=== PATIENT | female | born 1985 | race Caucasian/White ===

== ENCOUNTER → 2017-01-05 | Outpatient (CLI) | payer OTHER ==
--- NOTE | 2017-01-05 17:05 | RADIOLOGY REPORT (SQ) ---
EXAM DESCRIPTION: HYSTEROSALPINGOGRAM COMPLETED DATE/TIME: 01/05/2017 3:40 pm REASON FOR STUDY: INFERTILITY COMPARISON: None. PROCEDURE: PRE-PROCEDURE: Procedure was explained to the patient. She was told to expect cramping du ring the procedure, and possible spotting post procedure. PROCEDURE: The cervix was prepped in sterile fashion. Under direct visual inspection, the cervix was cannulated with the hysterosalpingogram catheter and contrast injected. TECHNIQUE: Temporal fluoroscopic images acquired during the procedure stored to PACS. FLUOROSCOPY TIME: Less than 5 seconds 17 digital radiographic images saved to PACS. LIMITATIONS: None. FINDINGS: UTERUS: No identified anomalies. No synechia. RIGHT ADNEXA: Normal size fallopian tube. Free spill of contrast into the peritoneal cavity. LEFT ADNEXA: Normal size fallopian tube. Preferential free spill of contrast into the peritoneal cav ity. POST PROCEDURE: The patient tolerated the procedure with no adverse effects. IMPRESSION: NORMAL HYSTEROSALPINGOGRAM. COMMENT: Quality ID [id number]: Final reports for procedures using fluoroscopy that document radiation exp osure indices, or exposure time and number of fluorographic images (if radiation exposure indices are not available) TECHNICAL DOCUMENTATION: JOB ID: [id number] [email or web address]- All Rights Reserved
== END ==
LOC: RAD 14:35
PROVIDERS: ATTEND Specialist
DX: N97.9 Female infertility, unspecified (principal)
CPT/HCPCS: 74740

== ENCOUNTER 2017-11-30 11:04 | Outpatient (CLI) | payer OTHER | END 2017-11-30 11:43 | disposition home or self-care (01) | LOC: LC 11:04 | PROVIDERS: ATTEND Obstetrics & Gynecology | PROC: 4A1HXCZ Monitoring of Products of Conception, Cardiac Rate, External Approach (ICD-10-PCS; principal; 2017-11-30) | DX: O36.8130 Decreased fetal movements, third trimester, not applicable or unspecified (principal); Z3A.33 33 weeks gestation of pregnancy | CPT/HCPCS: 59025 ==

== ENCOUNTER 2018-01-06 07:44 | Inpatient (IN) | payer OTHER ==
[2018-01-05 12:03] LABS: APPEARANCE,URINE CLEAR; BILIRUBIN,URINE NEGATIVE (NEGATIVE); COLOR,URINE YELLOW; GLUCOSE, URINE NEGATIVE (NEGATIVE); KETONES,URINE NEGATIVE (NEGATIVE); LEUKOCYTE ESTERASE,URINE TRACE (NEGATIVE); NITRITE,URINE NEGATIVE (NEGATIVE); PROTEIN,URINE NEGATIVE (NEGATIVE); URINE SPECIFIC GRAVITY 1.008; UROBILINOGEN,URINE NEGATIVE mg/dL (<2.0)
[2018-01-05 12:16] LABS: URINE AMPHETAMINES SCREEN NEGATIVE; URINE BARBITURATES SCREEN NEGATIVE; URINE BENZODIAZEPINES SCREEN NEGATIVE; URINE COCAINE SCREEN NEGATIVE; URINE MARIJUANA (THC) SCREEN NEGATIVE; URINE METHADONE SCREEN NEGATIVE; URINE PHENCYCLIDINE SCREEN NEGATIVE
[2018-01-05 12:31] LABS: ABSOLUTE LYMPHOCYTES (AUTO) 2.2 10^3/uL (0.5-4.7); ABSOLUTE MONOCYTES (AUTO) 0.6 10^3/uL (0.1-1.4); ABSOLUTE NEUT (AUTO) 6.4 10^3/uL (1.7-8.2); BASOPHILS % (AUTO) 0.2 % (0-2); EOSINOPHILS % (AUTO) 0.3 % (0-6); HEMATOCRIT 39.5 % (36.0-47.0); HEMOGLOBIN 13.5 g/dL (12.0-15.5); LYMPHOCYTES % (AUTO) 23.5 % (13-45); MEAN CORPUSCULAR HEMOGLOBIN 29.1 pg (27.0-33.4); MEAN CORPUSCULAR HGB CONC 34.1 g/dL (32.0-36.0); MEAN CORPUSCULAR VOLUME 86 fl (80-97); MONOCYTES % (AUTO) 6.8 % (3-13); PLATELET COUNT 196 10^3/uL (150-450); RED BLOOD COUNT 4.62 10^6/uL (3.72-5.28); RED CELL DISTRIBUTION WIDTH 13.9 % (11.5-14.0); SEGMENTED NEUTROPHILS % (AUTO) 69.2 % (42-78); TOTAL CELLS COUNTED % (AUTO) 100 %; WHITE BLOOD COUNT 9.2 10^3/uL (4.0-10.5)
[~2018-01-06 07:44] MED LIST: CEFAZOLIN 2 GM/D5W RTU 2 GM/50 ML RTUPB IV PRN; LIDOCAINE 0.5% INJ-PF (5 MG/ML) 50 ML SDV SUBCUT PRN; RINGERS SOLUTION,LACTATED 2,000 ML IV PRN
[2018-01-06] MEDS ORDERED: DEXAMETHASONE SOD PHOSPHATE INJ 4 MG/1 ML VIAL ONE (08:24)
[2018-01-06] MEDS ORDERED: ONDANSETRON HCL INJ/PF 4 MG/2 ML SDV ONE (08:24)
[2018-01-06] MEDS ORDERED: METOCLOPRAMIDE HCL INJ/PF 10 MG/2 ML SDV ONE (08:24)
[2018-01-06] MEDS: LACTATED RINGERS 1000 ML IV PRN ×2 (09:26→16:09)
[2018-01-06] MEDS ORDERED: CEFAZOLIN INJ 1 GM VIAL ONE (10:28)
[2018-01-06] MEDS ORDERED: PROMETHAZINE HCL INJ 25 MG/1 ML VIAL IV PRN ×3 (11:11→11:28)
[2018-01-06] MEDS ORDERED: FENTANYL CITRATE INJ/PF 100 MCG/2 ML AMPUL IV PRN ×3 (11:11)
[2018-01-06] MEDS ORDERED: MEPERIDINE HCL/PF INJ 25 MG/1 ML DISP.SYRIN IV PRN (11:11)
[2018-01-06] MEDS ORDERED: ONDANSETRON HCL INJ/PF 4 MG/2 ML SDV IV PRN (11:11)
[2018-01-06] MEDS ORDERED: OXYCODONE-ACETAMINOPHEN 5-325 MG TABLET PO PRN ×3 (11:11→11:28)
[2018-01-06] MEDS ORDERED: DIPHENHYDRAMINE HCL 50 MG/ML VIAL IV PRN (11:11)
[2018-01-06] MEDS ORDERED: SIMETHICONE 80 MG TAB.CHEW PO PRN (11:28)
[2018-01-06] MEDS ORDERED: DIPH/PERTUSS(ACELL)/TETANUS VAC/PF 0.5 ML SYR (>=10YO) IM PRN (11:28)
[2018-01-06] MEDS ORDERED: OXYTOCIN/NORMAL SALINE 20 UNIT/1,000 ML RTUINJ IV PRN (11:28)
[2018-01-06] MEDS ORDERED: ACETAMINOPHEN 325 MG TABLET PO PRN (11:28)
[2018-01-06] MEDS ORDERED: MEASLES,MUMPS&RUBELLA VACC/PF 0.5 ML VIAL SUBCUT PRN (11:28)
[2018-01-06] MEDS ORDERED: RINGERS SOLUTION,LACTATED 1,000 ML IV PRN (11:28)
[2018-01-06] MEDS ORDERED: ACETAMINOPHEN 1,000 MG/100 ML RTUPB IV PRN (11:28)
[2018-01-06] MEDS ORDERED: IBUPROFEN 800 MG TABLET PO SCH (12:00)
--- NOTE | 2018-01-06 12:15 | OPERATIVE REPORT E ---
Operative Report NAME: SANGEETHA GAITAN : 1985 AGE: 32Y DATE OF SURGERY: 01/06/2018 ROOM: 216 PREOPERATIVE DIAGNOSIS: IUP at 39 weeks, breech presentation. POSTOPERATIVE DIAGNOSIS: IUP at 39 weeks, breech presentation. SURGEON: ANTIONETTE VILLAR M.D. OVERHAULER BUS TRUCK: MARIA FREEMAN, STOCK WORKER ANESTHESIOLOGY TECHNOLOGIST. ANESTHESIA: Dr. Dye with a spinal. FINDINGS: Male in yuli breech presentation, Apgars of 8 and 9. ESTIMATED BLOOD LOSS: 600 mL. COMPLICATIONS: None. PROCEDURE: Low transverse hysterotomy section. PROCEDURE IN DETAIL: The patient was taken to the operating room and prepared and draped in a normal sterile fashion in the supine position with a leftward tilt. A transverse skin incision was made with the scalpel and carried through to the underlying layer of fascia with the same scalpel. The fascia was excised in the midline and extended laterally with Cardoza's. The rectus muscle was divided from the fascia sharply using Cardoza's and the rectus muscle was divided. The peritoneal cavity was entered bluntly and with good visualization of the bladder and the uterus. The bladder blade was inserted. The hysterotomy was nicked with a scalpel and extended laterally with bandage scissors. The 's buttocks were grasped and the was delivered atraumatically. The nose and mouth were suctioned with a suction bulb and the cord was clamped and cut and the was handed off to the fireman helper. The cord blood was collected. The placenta was removed manually. The uterus was exteriorized and cleared of clots and debris. The hysterotomy was closed with 0 Monocryl in a running, locked fashion and a second layer of the same suture was used to imbricate to ensure hemostasis. A small amount of bleeding was noted at the hysterotomy site. This was tied off with a figure of eight 2-0 Chromic. The rectus muscle and peritoneum were then reapproximated with a mattress stitch of 2-0 Chromic. The fascia was closed with 0 Vicryl. The subcutaneous layer was closed with plain catgut and the skin was closed with 4-0 Vicryl. The patient tolerated the procedure well. Sponge, lap, and needle counts were correct x2 and the patient was taken to recovery in stable condition. DICTATING PHYSICIAN: ANTIONETTE VILLAR M.D. [id number] PHY#: [id number] ID: [id number] JOB#: [id number] ACCT: [id number] cc:ANTIONETTE VILLAR M.D. > DOMINGUEZ
[2018-01-06] MEDS ORDERED: OXYCODONE-ACETAMINOPHEN 5-325 MG TABLET ONE (13:28)
[2018-01-06] MEDS: KETOROLAC TROMETHAMINE INJ/PF 30 MG/1 ML SDV IV SCH ×2 (14:35→22:30)
[2018-01-06] MEDS: MORPHINE SULFATE 10 MG/ML INJ IV PRN (15:35)
[2018-01-06] MEDS: DOCUSATE SODIUM 100 MG CAPSULE PO SCH (17:12)
[2018-01-07] MEDS: MORPHINE SULFATE 10 MG/ML INJ IV PRN (05:12)
[2018-01-07 06:40] LABS: HEMATOCRIT 33.9 % (36.0-47.0); HEMOGLOBIN 11.6 g/dL (12.0-15.5); MEAN CORPUSCULAR HEMOGLOBIN 29.3 pg (27.0-33.4); MEAN CORPUSCULAR HGB CONC 34.3 g/dL (32.0-36.0); MEAN CORPUSCULAR VOLUME 86 fl (80-97); PLATELET COUNT 161 10^3/uL (150-450); RED BLOOD COUNT 3.96 10^6/uL (3.72-5.28); RED CELL DISTRIBUTION WIDTH 13.9 % (11.5-14.0); WHITE BLOOD COUNT 13.5 10^3/uL (4.0-10.5)
[2018-01-07] MEDS: KETOROLAC TROMETHAMINE INJ/PF 30 MG/1 ML SDV IV SCH (06:42)
--- NOTE | 2018-01-07 09:30 | PDOC PROGRESS REPORT ---
Subjective-OB Progress Note for:: 01/07/18 Subjective: Pt doing well, no concerns. She reports light bleeding, reg diet, no difficulty voiding and + flatus. Physical Exam (OB) Vital Signs: Temp Pulse Resp BP Pulse Ox 98.1 F 80 16 115/68 95 01/07/18 09:00 01/07/18 09:00 01/07/18 09:00 01/07/18 09:00 01/07/18 09:00 Intake & Output 01/06/18 01/07/18 01/08/18 06:59 06:59 06:59 Intake Total 4770 Output Total 3550 Balance 1220 Weight 92.53 kg 102.6 kg - PIH/Pre-Eclampsia DTR's: 1 + Clonus: Negative Headache: Absent Epigastric Pain: No Visual Changes: No - Dressing Removed: No - opsite noted Incision: Dressing Closure Type: op site - Lochia Lochia Amount: Small 10-25 ml Lochia Color: Rubra/Red - Abdomen Description: Tender, Soft, Round Hernia Present: No Fundal Description: Firm, Midline Fundal Height: u/u - u/2 Objective-Diagnostic Laboratory: 01/07/18 06:20 01/07/18 06:20 WBC 13.5 H RBC 3.96 Hgb 11.6 L Hct 33.9 L MCV 86 MCH 29.3 MCHC 34.3 RDW 13.9 Plt Count 161 Assessment and Plan(PN) - Assessment and Plan (1) delivery delivered Is this a current diagnosis for this admission?: Yes - Time Spent with Patient Time with patient: Less than 15 minutes Medications reviewed and adjusted accordingly: Yes - Disposition Anticipated Discharge: Home Within: within 24 hours
[2018-01-07] MEDS: PRENATAL VITAMIN W DHA CAPSULE PO SCH (10:02)
[2018-01-07] MEDS: DOCUSATE SODIUM 100 MG CAPSULE PO SCH ×2 (10:02→18:17)
[2018-01-07] MEDS ORDERED: IBUPROFEN 800 MG TABLET PO ONE (19:00)
[2018-01-07] MEDS: IBUPROFEN 800 MG TABLET PO SCH (23:20)
[2018-01-07] MEDS: OXYCODONE-ACETAMINOPHEN 5-325 MG TABLET PO PRN (23:20)
[2018-01-08] MEDS ORDERED: IBUPROFEN 800 MG TABLET PO SCH
[2018-01-08] MEDS: IBUPROFEN 800 MG TABLET PO SCH ×2 (05:02→11:04)
--- NOTE | 2018-01-08 10:15 | PDOC DISCHARGE SUMMARY ---
Final Diagnosis Discharge Date: 01/08/18 - Final Diagnosis (1) delivery delivered Is this a current diagnosis for this admission?: Yes Discharge Data - Discharge Medication Prescriptions: Ibuprofen [Motrin 800 mg Tablet] 800 mg PO Q8HP PRN #60 tablet PRN Reason: Oxycodone HCl/Acetaminophen [Percocet 5-325 mg Tablet] 1 tab PO Q4HP PRN #30 tablet PRN Reason: Home Medications: No122/Iron/Folic Acid [ Multi Tablet] 1 each PO DAILY 11/30/17 Ibuprofen [Motrin 800 mg Tablet] 800 mg PO Q8HP PRN #60 tablet 01/08/18 Oxycodone HCl/Acetaminophen [Percocet 5-325 mg Tablet] 1 tab PO Q4HP PRN #30 tablet 01/08/18 Procedures: NST Intrapartum Procedure(s): : Low Cervical, Transverse - Diagnosis Test Laboratory: Temp Pulse Resp BP Pulse Ox 98.2 F 90 16 122/69 96 01/08/18 08:34 01/08/18 08:34 01/08/18 08:34 01/08/18 08:34 01/08/18 08:34 01/05/18 01/05/18 01/07/18 11:15 11:20 06:20 RBC 4.62 3.96 Hgb 13.5 11.6 L Hct 39.5 33.9 L Urine Opiates Screen NEGATIVE - Discharge information/Instructions Discharge Activity: Balance Activity w/Rest, No Lifting/Push/Pulling, Pelvic Rest, No tub bath Discharge Diet: Regular Disposition: HOME WITH HOSPICE Follow up with: [facility] in: 1, Weeks
[2018-01-08 10:57] VITALS: BP 121/58
[2018-01-08] MEDS: DOCUSATE SODIUM 100 MG CAPSULE PO SCH (11:04)
[2018-01-08] MEDS: PRENATAL VITAMIN W DHA CAPSULE PO SCH (11:04)
[2018-01-08] MEDS: OXYCODONE-ACETAMINOPHEN 5-325 MG TABLET PO PRN (13:25)
== END 2018-01-08 14:20 | disposition hospice, home (50) | DRG 765 ==
LOC: 2S 07:44
PROVIDERS: ADMIT Obstetrics & Gynecology; ATTEND Obstetrics & Gynecology
PROC: 4A1HXCZ Monitoring of Products of Conception, Cardiac Rate, External Approach (ICD-10-PCS; 2018-01-06)
PROC: 10D00Z1 Extraction of Products of Conception, Low, Open Approach (ICD-10-PCS; principal; 2018-01-06 10:15)
DX: O24.425 Gestational diabetes mellitus in childbirth, controlled by oral hypoglycemic drugs (principal); O99.214 Obesity complicating childbirth; E66.9 Obesity, unspecified; O64.1XX0 Obstructed labor due to breech presentation, not applicable or unspecified; Z68.41 Body mass index [BMI] 40.0-44.9, adult; Z37.0 Single live birth; Z3A.39 39 weeks gestation of pregnancy
CPT/HCPCS: 1961; 36415; 59025; 80307; 81001; 82962; 85025; 85027; 86850; 86900; 86901; 94799; J0690; J1100; J1885; J2270; J2405; J2765; J3490; J7120